=== PATIENT | female | born 1955 | race Caucasian/White ===

== ENCOUNTER 2018-02-26 01:41 | Inpatient (IN) | payer OTHER ==
[~2018-02-26] VITALS: Ht 167.6 cm; Wt 86.2 kg
[2018-02-26 02:19] LABS: HEMATOCRIT 42.4 % (36.0-46.0); MCH 27.8 PG (29.0-34.0); MCV 84.1 FL (83-99); RBC DIS.WIDTH-CV 14.5 % (11.8-14.6); RBC DIS.WIDTH-SD 44.4 % (39-53); RED BLOOD COUNT 5.04 M/uL (3.80-5.20); WHITE BLOOD COUNT 10.9 K/uL (4.1-10.2)
[2018-02-26 02:33] LABS: ALBUMIN 4.2 g/dL (3.2-4.8); CHLORIDE 101 mEq/L (99-109); POTASSIUM 3.9 mEq/L (3.7-5.4); SODIUM 136 mEq/L (136-147)
[2018-02-26 02:36] LABS: GLUCOSE 154 mg/dL (70-99); TOTAL PROTEIN 7.3 g/dL (6.4-8.3)
[2018-02-26 02:37] LABS: TOTAL BILIRUBIN 0.7 mg/dL (0.0-1.0)
[2018-02-26 02:39] LABS: ALKALINE PHOSPHATASE 77 IU/L (3-129); CREATININE 0.9 mg/dL (0.6-1.3); GFR ESTIMATE (CALCULATED) > 59 mL/min/
[2018-02-26 02:40] LABS: UREA NITROGEN (BUN) 11 mg/dL (9-23)
[2018-02-26 02:41] LABS: AST (GOT) 19 IU/L (2-34)
[2018-02-26 02:42] LABS: ALT (GPT) 14 IU/L (3-49)
[2018-02-26 02:43] LABS: LIPASE 8 U/L (1.0-51.0)
[2018-02-26 04:33] LABS: PLATELET COUNT UNABLE TO REPORT K/uL (156-360)
[2018-02-26 04:35] LABS: PLAT.SUFFICIENCY ADEQUATE
[2018-02-26 06:36] VITALS: BP 118/71
[2018-02-26 09:00] VITALS: BP 116/66
[2018-02-26 11:40] VITALS: BP 130/76
[2018-02-26] MEDS ORDERED: YUVAFEM10 MCG VG (13:09)
[2018-02-26] MEDS ORDERED: ERGOCALCIF50000 UNIT PO (13:12)
[2018-02-26] MEDS ORDERED: MAGNESIUM PO (13:17)
[2018-02-26] MEDS ORDERED: NEURONTIN300 MG PO (13:18)
[2018-02-26 15:54] VITALS: BP 116/69
[2018-02-26 15:59] VITALS: BP 114/69
[2018-02-26 19:32] VITALS: BP 118/69
[2018-02-27 00:20] VITALS: BP 120/64
[2018-02-27 04:02] VITALS: BP 122/64
[2018-02-27 08:18] VITALS: BP 122/57
[2018-02-27 09:40] LABS: HEMATOCRIT 36.7 % (36.0-46.0); MCH 27.4 PG (29.0-34.0); MCHC 31.6 G/DL (30.0-36.0); MCV 86.6 FL (83-99); RBC DIS.WIDTH-CV 14.6 % (11.8-14.6); RBC DIS.WIDTH-SD 47.2 % (39-53); RED BLOOD COUNT 4.24 M/uL (3.80-5.20); WHITE BLOOD COUNT 6.3 K/uL (4.1-10.2)
[2018-02-27 09:49] LABS: HEMOGLOBIN 11.6 G/DL (11.9-15.5); PLATELET COUNT 176 K/uL (156-360)
[2018-02-27 10:16] LABS: PLAT.SUFFICIENCY ADEQUATE
[2018-02-27 10:19] LABS: CHLORIDE 104 MEQ/L (99-109); CREATININE 0.6 MG/DL (0.6-1.3); GFR ESTIMATE (CALCULATED) > 59 mL/min/; POTASSIUM 3.9 MEQ/L (3.7-5.4); SODIUM 139 MEQ/L (136-147); UREA NITROGEN (BUN) 14 mg/dL (9-23)
[2018-02-27 10:20] LABS: GLUCOSE 96 mg/dL (70-99)
[2018-02-27 19:13] VITALS: BP 134/68
[2018-02-27 23:36] VITALS: BP 134/66
[2018-02-28 03:40] VITALS: BP 134/77
[2018-02-28 05:41] LABS: HEMATOCRIT 35.2 % (36.0-46.0); HEMOGLOBIN 11.3 G/DL (11.9-15.5); MCH 27.6 PG (29.0-34.0); MCHC 32.1 G/DL (30.0-36.0); MCV 85.9 FL (83-99); RBC DIS.WIDTH-CV 14.6 % (11.8-14.6); RBC DIS.WIDTH-SD 45.9 % (39-53); WHITE BLOOD COUNT 8.3 K/uL (4.1-10.2)
[2018-02-28 06:10] LABS: ALBUMIN 3.4 G/DL (3.2-4.8); ALKALINE PHOSPHATASE 47 IU/L (3-129); ALT (GPT) 8 IU/L (3-49); AST (GOT) 13 IU/L (2-34); C-REACTIVE PROTEIN 17.3 MG/L (0-10); CHLORIDE 104 MEQ/L (99-109); CREATININE 0.6 MG/DL (0.6-1.3); GFR ESTIMATE (CALCULATED) > 59 mL/min/; GLUCOSE 99 mg/dL (70-99); POTASSIUM 3.6 MEQ/L (3.7-5.4); SODIUM 141 MEQ/L (136-147); TOTAL BILIRUBIN 0.4 MG/DL (0.0-1.0); TOTAL PROTEIN 6.1 G/DL (6.4-8.3); UREA NITROGEN (BUN) 6 mg/dL (9-23)
[2018-02-28 06:58] LABS: PLAT.SUFFICIENCY ADEQUATE; PLATELET COUNT 172 K/uL (156-360)
[2018-02-28 07:20] VITALS: BP 120/71
[2018-02-28 08:37] LABS: THYROTROPIN (TSH) 1.4 MIU/L (0.4-5.5)
[2018-02-28 14:49] VITALS: BP 107/69
[2018-03-01 00:21] VITALS: BP 125/66
[2018-03-01 07:30] VITALS: BP 119/75
[2018-03-01 15:31] VITALS: BP 128/79
[2018-03-02 00:08] VITALS: BP 131/70
[2018-03-02 07:53] VITALS: BP 106/55
[2018-03-02 15:25] VITALS: BP 126/69
[2018-03-02 23:15] VITALS: BP 130/70
[2018-03-03 08:30] VITALS: BP 112/63
[2018-03-03 15:22] VITALS: BP 115/71
[2018-03-04 00:16] VITALS: BP 125/71
[2018-03-04 08:18] VITALS: BP 133/64
[2018-03-04 14:06] VITALS: BP 135/77
[2018-03-05 00:08] VITALS: BP 115/71
[2018-03-05 07:44] VITALS: BP 119/68
[2018-03-05 15:42] VITALS: BP 104/62
[2018-03-05 23:34] VITALS: BP 105/61
[2018-03-06 07:12] VITALS: BP 108/71
[2018-03-06 11:16] VITALS: BP 107/70
[2018-03-06 16:31] VITALS: BP 130/71
[2018-03-06 19:15] VITALS: BP 130/69
[2018-03-06 23:48] VITALS: BP 103/59
[2018-03-07 03:40] VITALS: BP 117/57
[2018-03-07 07:34] VITALS: BP 115/58
[2018-03-07 08:04] LABS: BASOPHIL (%) 0.5 % (0-1); EOSINOPHIL (%) 2.6 % (0-5); EOSINOPHIL COUNT 0.1 K/uL (0-0.3); HEMATOCRIT 34.9 % (36.0-46.0); HEMOGLOBIN 11.2 G/DL (11.9-15.5); IMMATURE GRANULOCYTE (%) 0.7 % (0.0-0.7); LYMPHOCYTE (%) 29.8 % (15-42); LYMPHOCYTE COUNT 1.6 K/uL (1.0-2.8); MCH 27.5 PG (29.0-34.0); MCHC 32.1 G/DL (30.0-36.0); MCV 85.5 FL (83-99); MONOCYTE (%) 8.8 % (3-12); MONOCYTE COUNT 0.5 K/uL (0-0.8); NEUTROPHIL (%) 57.6 % (45-76); NEUTROPHIL COUNT 3.2 K/uL (1.8-6.4); PLATELET COUNT 217 K/uL (156-360); RBC DIS.WIDTH-CV 14.3 % (11.8-14.6); RBC DIS.WIDTH-SD 44.7 % (39-53); RED BLOOD COUNT 4.08 M/uL (3.80-5.20); WHITE BLOOD COUNT 5.5 K/uL (4.1-10.2)
[2018-03-07 08:36] LABS: CHLORIDE 103 MEQ/L (99-109); CREATININE 0.7 MG/DL (0.6-1.3); GFR ESTIMATE (CALCULATED) > 59 mL/min/; GLUCOSE 93 mg/dL (70-99); SODIUM 139 MEQ/L (136-147); UREA NITROGEN (BUN) 8 mg/dL (9-23)
[2018-03-07 11:04] VITALS: BP 126/63
[2018-03-07 15:59] VITALS: BP 129/66
[2018-03-07 23:32] VITALS: BP 107/69
[2018-03-08 05:39] LABS: BASOPHIL (%) 0.6 % (0-1); EOSINOPHIL COUNT 0.3 K/uL (0-0.3); HEMOGLOBIN 10.4 G/DL (11.9-15.5); IMMATURE GRANULOCYTE (%) 0.6 % (0.0-0.7); LYMPHOCYTE (%) 36.8 % (15-42); LYMPHOCYTE COUNT 1.8 K/uL (1.0-2.8); MCH 27.2 PG (29.0-34.0); MCHC 31.5 G/DL (30.0-36.0); MCV 86.2 FL (83-99); MONOCYTE (%) 10.8 % (3-12); MONOCYTE COUNT 0.5 K/uL (0-0.8); NEUTROPHIL (%) 46.2 % (45-76); NEUTROPHIL COUNT 2.3 K/uL (1.8-6.4); PLATELET COUNT 216 K/uL (156-360); RBC DIS.WIDTH-CV 14.3 % (11.8-14.6); RBC DIS.WIDTH-SD 44.8 % (39-53); RED BLOOD COUNT 3.83 M/uL (3.80-5.20)
[2018-03-08 06:19] LABS: CHLORIDE 103 MEQ/L (99-109); CREATININE 0.6 MG/DL (0.6-1.3); GFR ESTIMATE (CALCULATED) > 59 mL/min/; GLUCOSE 90 mg/dL (70-99); POTASSIUM 3.9 MEQ/L (3.7-5.4); SODIUM 139 MEQ/L (136-147); UREA NITROGEN (BUN) 6 mg/dL (9-23)
[2018-03-08 07:41] VITALS: BP 95/58
[2018-03-08 15:22] VITALS: BP 98/59
[2018-03-09 00:41] VITALS: BP 109/65
[2018-03-09 07:35] VITALS: BP 98/57
[2018-03-09 12:00] VITALS: BP 106/56
[2018-03-09 16:25] VITALS: BP 101/59
[2018-03-09 23:21] VITALS: BP 106/59
[2018-03-10 06:13] LABS: HEMATOCRIT 33.6 % (36.0-46.0); HEMOGLOBIN 10.6 G/DL (11.9-15.5); MCH 27.1 PG (29.0-34.0); MCHC 31.5 G/DL (30.0-36.0); MCV 85.9 FL (83-99); PLATELET COUNT 204 K/uL (156-360); RBC DIS.WIDTH-CV 13.9 % (11.8-14.6); RBC DIS.WIDTH-SD 43.8 % (39-53); RED BLOOD COUNT 3.91 M/uL (3.80-5.20); WHITE BLOOD COUNT 4.6 K/uL (4.1-10.2)
[2018-03-10 06:36] LABS: CHLORIDE 103 MEQ/L (99-109); CREATININE 0.6 MG/DL (0.6-1.3); GFR ESTIMATE (CALCULATED) > 59 mL/min/; GLUCOSE 88 mg/dL (70-99); POTASSIUM 3.9 MEQ/L (3.7-5.4); SODIUM 142 MEQ/L (136-147); UREA NITROGEN (BUN) 7 mg/dL (9-23)
[2018-03-10 06:46] LABS: BASOPHIL (%) 0.6 % (0-1); EOSINOPHIL (%) 4.8 % (0-5); EOSINOPHIL COUNT 0.2 K/uL (0-0.3); IMMATURE GRANULOCYTE (%) 0.4 % (0.0-0.7); LYMPHOCYTE (%) 42.9 % (15-42); MONOCYTE COUNT 0.5 K/uL (0-0.8); NEUTROPHIL (%) 40.3 % (45-76); NEUTROPHIL COUNT 1.9 K/uL (1.8-6.4)
[2018-03-10 06:49] LABS: PLAT.SUFFICIENCY ADEQUATE
[2018-03-10 07:44] VITALS: BP 99/56
[2018-03-10] MEDS ORDERED: ZOFRAN ODT4 MG PO (10:05)
[2018-03-10] MEDS ORDERED: HYDROCODON-ACE1 EAC7 PO (10:05)
[2018-03-10 15:19] VITALS: BP 101/58
== END 2018-03-10 16:53 | disposition home or self-care (01) | DRG 336 ==
LOC: EME → EDBD 01:53 → EME 01:53 → EDOF 04:47 → 2EASTP 04:47 → 2EAST 04:47 → ENRESERV 04:48 → 2EASTP 05:35 → 2EAST 02-28 18:17
PROVIDERS: Emergency Medicine; Student in an Organized Health Care Education/Training Program
PROC: 0DBN8ZZ Excision of Sigmoid Colon, Via Natural or Artificial Opening Endoscopic (ICD-10-PCS; 2018-03-04)
PROC: 0DBP8ZZ Excision of Rectum, Via Natural or Artificial Opening Endoscopic (ICD-10-PCS; 2018-03-04)
PROC: 0DN84ZZ Release Small Intestine, Percutaneous Endoscopic Approach (ICD-10-PCS; principal; 2018-03-06)
DX: K56.50 Intestinal adhesions [bands], unspecified as to partial versus complete obstruction (principal); R18.8 Other ascites; K59.09 Other constipation; K63.5 Polyp of colon; K62.1 Rectal polyp; K57.30 Diverticulosis of large intestine without perforation or abscess without bleeding; K64.8 Other hemorrhoids; G43.909 Migraine, unspecified, not intractable, without status migrainosus; F41.9 Anxiety disorder, unspecified; G62.9 Polyneuropathy, unspecified; Z88.2 Allergy status to sulfonamides; Z87.891 Personal history of nicotine dependence; Z91.040 Latex allergy status; Z90.81 Acquired absence of spleen
CPT/HCPCS: 71045; 74018; 74019; 74177; 80048; 80053; 82948; 83605; 83690; 84439; 84443; 84481; 85025; 85027; 86140; 88305; 93005; 99281; 99285; J0131; J1100; J1170; J1885; J2250; J2405; J2710; J3010; J7030; J7120; J7643; P9045; S0020; S0074

== ENCOUNTER 2018-05-19 15:24 | Emergency (ER) | payer OTHER ==
[~2018-05-19] VITALS: Ht 167.6 cm; Wt 82.6 kg
[~2018-05-19 15:24] MED LIST: ERGOCALCIF50000 UNIT PO; HYDROCODON-ACE1 EAC7 PO; MAGNESIUM PO; NEURONTIN300 MG PO; YUVAFEM10 MCG VG; ZOFRAN ODT4 MG PO
[2018-05-19] MEDS ORDERED: NORCO 5/3251 TABLET PO (18:36)
[2018-05-19] MEDS ORDERED: KEFLEX500 MG PO (18:36)
[2018-05-19 18:50] VITALS: BP 111/77
== END 2018-05-19 18:51 | disposition home or self-care (01) ==
LOC: EME 15:24 → RME 15:24
PROC: 0HQFXZZ Repair Right Hand Skin, External Approach (ICD-10-PCS; principal; 2018-05-19)
DX: S62.524B Nondisplaced fracture of distal phalanx of right thumb, initial encounter for open fracture (principal); W23.0XXA Caught, crushed, jammed, or pinched between moving objects, initial encounter; Y99.0 Civilian activity done for income or pay; Z88.2 Allergy status to sulfonamides; Z79.890 Hormone replacement therapy
CPT/HCPCS: 73140; 99281; 99284; J0696